=== PATIENT | male | born 1995 | race Caucasian/White ===

== ENCOUNTER 2018-12-31 20:41 | Emergency (ER) | payer OTHER, SELFPAY ==
[2018-12-31] MEDS ORDERED: Adacel (T-DAP) 0.5 ML SYRINGE ONE (21:57)
== END 2018-12-31 22:16 | disposition home or self-care (01) ==
LOC: SCSER 20:41
DX: T24.032A Burn of unspecified degree of left lower leg, initial encounter (principal); X19.XXXA Contact with other heat and hot substances, initial encounter
CPT/HCPCS: 90471; 90715